=== PATIENT | female | born 1960 | race African-American/Black ===

== ENCOUNTER 2019-01-05 11:35 | Inpatient (IN) ==
[2019-01-05] MEDS ORDERED: methylPREDNISolone SOD SUC 125 MG/2 ML VIAL IV STA ×2 (11:53→14:01)
[2019-01-05] MEDS ORDERED: AZITHROMYCIN INJ 500 MG in SODIUM CHLORIDE 0.9% 250 ML IV STA (11:53)
[2019-01-05] MEDS ORDERED: ONDANSETRON 4 MG/2 ML VIAL IV STA (11:53)
[2019-01-05] MEDS ORDERED: ALBUTEROL 2.5 MG/3 ML NEB RESP TX SCH (12:00)
[2019-01-05 12:15] LABS: Basophils # 0.1 10*3/uL (0.0-0.2); Basophils % 0.8 % (0.0-0.8); Eosinophils # 0.4 10*3/uL (0.0-0.87); Eosinophils % 4.5 % (0.00-10.9); Hematocrit 41.9 VOL% (35.7-47.0); Hemoglobin 13.3 GM/DL (12.0-16.0); Immature Granulocytes % 0.8 %; Immature Granulocytes Absolute 0.07 #; Lymphocytes # 3.5 10*3/uL (1.4-4.0); Lymphocytes % 38.8 % (21.3-54.2); Mean Corpuscular HGB Conc 31.7 GM/DL (32-36); Mean Corpuscular Volume 86.9 FL (87-102); Monocytes % 10.3 % (1.7-12.7); Neutrophils % 44.8 % (38.7-73.9); Platelet Count 217 T/CUMM (130-400); Red Blood Count 4.82 MC/CUMM (3.8-5.5); Red Cell Distribution Width 13.7 % (9.3-17.3)
[2019-01-05] MEDS ORDERED: AZITHROMYCIN 500 MG VIAL IV ONE (12:39)
[2019-01-05 12:46] LABS: Alanine Aminotransferase 26 U/L (13-56); Albumin 3.8 G/DL (3.4-5.0); Alkaline Phosphatase 97 U/L (45-117); Aspartate Amino Transferase 18 U/L (0-37); Bilirubin,Total < 0.39 MG/DL (0.2-1.0); Blood Urea Nitrogen 13 MG/DL (7-18); Calcium 8.8 MG/DL (8.5-10.1); Glucose 102 MG/DL (74-106); Osmolality,Calculated 280.3 MOS/KG (273-304); Total Protein 7.8 G/DL (6.4-8.3); Troponin I < 0.015 NG/ML (0.00-0.045)
[2019-01-05] MEDS ORDERED: ALBUTEROL NEB SOLN 5 MG/ML 20 ML/BOTTLE CONT NEB STA (14:01)
[2019-01-05] MEDS ORDERED: cefTRIAXone 1,000 MG in SODIUM CHLORIDE 0.9% 100 ML IV STA (14:01)
[2019-01-05] MEDS ORDERED: DEXTROSE 50% 25 GM/50 ML VIAL IV PRN (15:16)
[2019-01-05] MEDS ORDERED: guaiFENesin/DM ER 600-30 MG TABLET PO PRN (15:16)
[2019-01-05] MEDS ORDERED: PROMETHAZINE 25 MG/1 ML VIAL IM PRN (15:16)
[2019-01-05] MEDS ORDERED: traZODone 50 MG TABLET PO PRN (15:16)
[2019-01-05] MEDS ORDERED: ZALEPLON 5 MG CAPSULE PO PRN (15:16)
[2019-01-05] MEDS ORDERED: ONDANSETRON 4 MG/2 ML VIAL IV PRN (15:16)
[2019-01-05] MEDS ORDERED: GLUCAGON 1 MG VIAL IM PRN (15:16)
[2019-01-05] MEDS ORDERED: diphenhydrAMINE CAP 25 MG CAPSULE PO PRN (15:16)
[2019-01-05] MEDS ORDERED: ACETAMINOPHEN 325 MG TABLET PO PRN (15:16)
[2019-01-05] MEDS ORDERED: cefTRIAXone 1,000 MG in SYRINGE 1 EACH IV SCH (15:30)
[2019-01-05] MEDS ORDERED: SODIUM CHLORIDE 0.9% 2,800 ML IV ONE (16:04)
[2019-01-05 16:53] LABS: Apearance,Urine Slightly Hazy (Clear); Bacteria,Urine Occasional /HPF (Few); Bilirubin,Urine Negative (Negative); Blood, Urine Negative (Negative); Glucose,Urine (UA) >=500 mg/dL (Negative); Ketones,Urine 20 mg/dL (Negative); Mucus,Urine Occasional /LPF (Occasional); Nitrite,Urine Negative (Negative); Protein,Urine Negative; RBC,Urine 1 /HPF (0-4); Squamous Epithelial Cell,Urine Occasional /HPF (0-10); Urine Color Yellow (Yellow); Urine Specific Gravity 1.024 (1.001-1.035); WBC,Urine 1 /HPF (0-6)
[2019-01-05] MEDS: methylPREDNISolone SOD SUC 40 MG/1 ML VIAL IV SCH ×2 (17:07→22:39)
[2019-01-05] MEDS: INSULIN REGULAR 100 UNIT/ML SUBCUT SCH ×2 (17:10→21:07)
[2019-01-05] MEDS: HEPARIN 5,000 UNIT/1 ML VIAL SUBCUT SCH ×2 (17:10→22:42)
[2019-01-05] MEDS ORDERED: INSULIN LISPRO PROTAMINE/LISPRO 75/25 100 UNIT/ML SUBCUT SCH ×2 (19:00→21:00)
[2019-01-05] MEDS: ALBUTEROL/IPRATROPIUM 3 ML NEB RESP TX SCH (19:01)
[2019-01-05] MEDS: SODIUM CHLORIDE 0.9% 1,000 ML IV SCH (21:06)
[2019-01-05] MEDS: VANCOMYCIN INJ 1,500 MG in SODIUM CHLORIDE 0.9% 500 ML IV SCH (21:06)
[2019-01-05] MEDS: metFORMIN 500 MG TABLET PO SCH (21:07)
[2019-01-05] MEDS: GABAPENTIN 400 MG CAPSULE PO SCH (21:07)
[2019-01-05] MEDS: DOCUSATE SODIUM 100 MG CAPSULE PO SCH (21:07)
[2019-01-05] MEDS: PIPERACILLIN/TAZOBACTAM 3,375 MG in SODIUM CHLORIDE 0.9% 100 ML IV SCH (23:42)
[2019-01-06] MEDS: ALBUTEROL/IPRATROPIUM 3 ML NEB RESP TX SCH ×4 (00:32→19:07)
[2019-01-06 02:58] LABS: Alanine Aminotransferase 34 U/L (13-56); Albumin 3.4 G/DL (3.4-5.0); Alkaline Phosphatase 86 U/L (45-117); Aspartate Amino Transferase 24 U/L (0-37); Bilirubin,Total < 0.39 MG/DL (0.2-1.0); Blood Urea Nitrogen 12 MG/DL (7-18); Calcium 8.1 MG/DL (8.5-10.1); Glucose 155 MG/DL (74-106); HDL Cholesterol 37 MG/DL (40-60); Osmolality,Calculated 288.8 MOS/KG (273-304); Thyroid Stimulating Hormone 0.014 uIU/ml (0.358-3.74); Total Protein 6.9 G/DL (6.4-8.3); Triglycerides 135 MG/DL (2-150)
[2019-01-06 03:27] LABS: Basophils % 0.3 % (0.0-0.8); Eosinophils % 0.1 % (0.00-10.9); Hematocrit 37.3 VOL% (35.7-47.0); Hemoglobin 11.2 GM/DL (12.0-16.0); Immature Granulocytes % 2.1 %; Immature Granulocytes Absolute 0.19 #; Lymphocytes # 1.5 10*3/uL (1.4-4.0); Lymphocytes % 16.6 % (21.3-54.2); Mean Corpuscular Volume 91.2 FL (87-102); Mean Platelet Volume 12.1 FL (9.6-12.0); Monocytes % 3.7 % (1.7-12.7); NRBC # 0.02 10*3/uL; Neutrophils % 77.2 % (38.7-73.9); Red Blood Count 4.09 MC/CUMM (3.8-5.5); Red Cell Distribution Width 14.2 % (9.3-17.3); White Blood Count 9.3 T/CUMM (4-12)
[2019-01-06 03:34] LABS: Platelet Count 99 T/CUMM (130-400)
[2019-01-06] MEDS: SODIUM CHLORIDE 0.9% 1,000 ML IV SCH (05:53)
[2019-01-06] MEDS: PIPERACILLIN/TAZOBACTAM 3,375 MG in SODIUM CHLORIDE 0.9% 100 ML IV SCH ×2 (06:14→16:20)
[2019-01-06] MEDS ORDERED: MAGNESIUM SULF RIDER 4 GM in PREMIX 1 EACH IV PRN (07:22)
[2019-01-06] MEDS ORDERED: MAGNESIUM SULF RIDER 2 GM in PREMIX 1 EACH IV PRN (07:22)
[2019-01-06] MEDS ORDERED: INSULIN LISPRO PROTAMINE/LISPRO 75/25 100 UNIT/ML SUBCUT SCH ×3 (07:30→15:39)
[2019-01-06] MEDS ORDERED: SODIUM CHLORIDE 0.9% 500 ML IV ONE (07:35)
[2019-01-06] MEDS: INSULIN REGULAR 100 UNIT/ML SUBCUT SCH ×4 (07:48→21:15)
[2019-01-06 08:12] LABS: Free T4 (Free Thyroxine) 1.08 NG/DL (0.76-1.46)
[2019-01-06] MEDS: VANCOMYCIN INJ 1,500 MG in SODIUM CHLORIDE 0.9% 500 ML IV SCH ×3 (08:26→21:59)
[2019-01-06] MEDS: CHOLECALCIFEROL 1,000 UNIT TABLET PO SCH (08:49)
[2019-01-06] MEDS: FOLIC ACID 0.4 MG TABLET PO SCH (08:49)
[2019-01-06] MEDS: AZITHROMYCIN 250 MG TABLET PO SCH (08:49)
[2019-01-06] MEDS: sitaGLIPtin 25 MG TABLET PO SCH (08:49)
[2019-01-06] MEDS: PANTOPRAZOLE 40 MG TABLET PO SCH (08:50)
[2019-01-06] MEDS: HEPARIN 5,000 UNIT/1 ML VIAL SUBCUT SCH ×2 (08:50→16:18)
[2019-01-06] MEDS: metFORMIN 500 MG TABLET PO SCH ×2 (08:50→21:15)
[2019-01-06] MEDS: ATORVASTATIN 40 MG TABLET PO SCH (08:50)
[2019-01-06] MEDS: GABAPENTIN 400 MG CAPSULE PO SCH ×3 (08:50→21:15)
[2019-01-06] MEDS: methylPREDNISolone SOD SUC 40 MG/1 ML VIAL IV SCH ×2 (08:51→16:19)
[2019-01-06] MEDS: DOCUSATE SODIUM 100 MG CAPSULE PO SCH ×2 (08:58→21:15)
[2019-01-06] MEDS: guaiFENesin 200 MG/10 ML UDCUP PO PRN ×3 (12:12→21:15)
[2019-01-06] MEDS ORDERED: SODIUM CHLORIDE 0.9% 1,000 ML IV ONE (15:34)
[2019-01-07] MEDS: ALBUTEROL/IPRATROPIUM 3 ML NEB RESP TX SCH ×4 (00:16→19:12)
[2019-01-07] MEDS: HEPARIN 5,000 UNIT/1 ML VIAL SUBCUT SCH ×4 (00:35→23:31)
[2019-01-07] MEDS: SODIUM CHLORIDE 0.9% 1,000 ML IV SCH ×3 (05:08→07:15)
[2019-01-07] MEDS: methylPREDNISolone SOD SUC 40 MG/1 ML VIAL IV SCH ×2 (05:09→07:12)
[2019-01-07] MEDS: PIPERACILLIN/TAZOBACTAM 3,375 MG in SODIUM CHLORIDE 0.9% 100 ML IV SCH ×2 (05:11→08:24)
[2019-01-07 05:59] LABS: Basophils % 0.3 % (0.0-0.8); Hematocrit 36.8 VOL% (35.7-47.0); Hemoglobin 11.3 GM/DL (12.0-16.0); Immature Granulocytes % 1.4 %; Immature Granulocytes Absolute 0.22 #; Lymphocytes # 1.7 10*3/uL (1.4-4.0); Mean Corpuscular HGB Conc 30.7 GM/DL (32-36); Mean Corpuscular Volume 89.5 FL (87-102); Monocytes % 5.3 % (1.7-12.7); Platelet Count 216 T/CUMM (130-400); Red Blood Count 4.11 MC/CUMM (3.8-5.5); Red Cell Distribution Width 14.5 % (9.3-17.3); White Blood Count 15.3 T/CUMM (4-12)
[2019-01-07 06:13] LABS: Albumin 3.6 G/DL (3.4-5.0); Bilirubin,Total 0.4 MG/DL (0.2-1.0); Calcium 8.5 MG/DL (8.5-10.1); Total Protein 7.1 G/DL (6.4-8.3)
[2019-01-07] MEDS: guaiFENesin 200 MG/10 ML UDCUP PO PRN ×4 (07:11→21:31)
[2019-01-07] MEDS: ATORVASTATIN 40 MG TABLET PO SCH (08:26)
[2019-01-07] MEDS: FOLIC ACID 0.4 MG TABLET PO SCH (08:26)
[2019-01-07] MEDS: DOCUSATE SODIUM 100 MG CAPSULE PO SCH ×2 (08:26→21:31)
[2019-01-07] MEDS: PANTOPRAZOLE 40 MG TABLET PO SCH (08:26)
[2019-01-07] MEDS: GABAPENTIN 400 MG CAPSULE PO SCH ×3 (08:26→21:31)
[2019-01-07] MEDS: AZITHROMYCIN 250 MG TABLET PO SCH (08:26)
[2019-01-07] MEDS: sitaGLIPtin 25 MG TABLET PO SCH (08:26)
[2019-01-07] MEDS: metFORMIN 500 MG TABLET PO SCH ×2 (08:26→21:31)
[2019-01-07] MEDS: CHOLECALCIFEROL 1,000 UNIT TABLET PO SCH (08:27)
[2019-01-07] MEDS: INSULIN REGULAR 100 UNIT/ML SUBCUT SCH ×4 (08:28→21:32)
[2019-01-07] MEDS ORDERED: NICOTINE 21 MG/24 HR PATCH TRANSDERM PRN (11:23)
[2019-01-07] MEDS ORDERED: FUROSEMIDE 20 MG/2 ML VIAL IV SCH (11:25)
[2019-01-07] MEDS ORDERED: FUROSEMIDE 20 MG/2 ML VIAL ONE (11:31)
[2019-01-07] MEDS: cefTRIAXone 1,000 MG in SYRINGE 1 EACH IV SCH (11:41)
[2019-01-07] MEDS: NICOTINE 14 MG/24 HR PATCH TRANSDERM SCH (11:43)
[2019-01-07] MEDS: FUROSEMIDE 20 MG/2 ML VIAL IV SCH ×2 (11:46→23:32)
[2019-01-07] MEDS ORDERED: methylPREDNISolone SOD SUC 40 MG/1 ML VIAL IV SCH (17:30)
[2019-01-07] MEDS ORDERED: INSULIN LISPRO PROTAMINE/LISPRO 75/25 100 UNIT/ML SUBCUT SCH (21:00)
[2019-01-08] MEDS: ALBUTEROL/IPRATROPIUM 3 ML NEB RESP TX SCH ×2 (01:23→07:15)
[2019-01-08] MEDS: guaiFENesin 200 MG/10 ML UDCUP PO PRN ×2 (01:56→08:21)
[2019-01-08] MEDS ORDERED: INSULIN LISPRO PROTAMINE/LISPRO 75/25 100 UNIT/ML SUBCUT SCH (07:30)
[2019-01-08] MEDS ORDERED: methylPREDNISolone SOD SUC 40 MG/1 ML VIAL IV SCH (07:30)
[2019-01-08] MEDS: INSULIN REGULAR 100 UNIT/ML SUBCUT SCH ×2 (07:42→11:45)
[2019-01-08] MEDS: NICOTINE 14 MG/24 HR PATCH TRANSDERM SCH (08:20)
[2019-01-08] MEDS: FOLIC ACID 0.4 MG TABLET PO SCH (08:21)
[2019-01-08] MEDS: sitaGLIPtin 25 MG TABLET PO SCH (08:21)
[2019-01-08] MEDS: AZITHROMYCIN 250 MG TABLET PO SCH (08:21)
[2019-01-08] MEDS: ATORVASTATIN 40 MG TABLET PO SCH (08:21)
[2019-01-08] MEDS: HEPARIN 5,000 UNIT/1 ML VIAL SUBCUT SCH (08:21)
[2019-01-08] MEDS: PANTOPRAZOLE 40 MG TABLET PO SCH (08:21)
[2019-01-08] MEDS: CHOLECALCIFEROL 1,000 UNIT TABLET PO SCH (08:21)
[2019-01-08] MEDS: DOCUSATE SODIUM 100 MG CAPSULE PO SCH (08:22)
[2019-01-08] MEDS: GABAPENTIN 400 MG CAPSULE PO SCH (08:22)
[2019-01-08] MEDS: metFORMIN 500 MG TABLET PO SCH (08:22)
[2019-01-08 11:44] VITALS: BP 127/91
[2019-01-08] MEDS: cefTRIAXone 1,000 MG in SYRINGE 1 EACH IV SCH (11:45)
== END 2019-01-08 14:45 | disposition home or self-care (01) | DRG 202 ==
LOC: N.EDINP 11:35 → N.ED 11:35 → SUPCPDRO 15:16 → N.4E 15:56 → SUATTDRO 01-06 16:26
PROVIDERS: ADMIT Internal Medicine; ATTEND Internal Medicine